=== PATIENT | female | born 1985 | race Caucasian/White ===

== ENCOUNTER 2020-05-30 12:49 | Emergency (ER) | payer MEDICAID, OTHER ==
[2020-05-30] MEDS ORDERED: Lidocaine 1% 30 ML SDV INJECT ONE (13:05)
--- NOTE | 2020-05-30 13:49 | EDM.PDOC ---
ED HPI GENERAL MEDICAL PROBLEM - General Chief Complaint: Laceration Time Seen by Provider: 05/30/20 13:01 Source of Information: Reports: Patient History Limitations: Reports: No Limitations - History of Present Illness INITIAL COMMENTS - FREE TEXT/NARRATIVE: Pt. presents to ER with complaints of laceration/skin tear to R anteriolateral wrist. Tetanus is up to date. Denies any injury elsewhere. No numbness/tingling distal to the area of injury. She reports that the area of the skin avulsion is extremely tender and sensitive to palpation/bandaging. Pt. states that she has no history of allergy to lidocaine or other local anesthetics. Onset: Today Onset Date: 05/30/20 Location: Reports: Upper Extremity, Right Quality: Reports: Burning, Sharp, Throbbing Improves with: Reports: Rest Worsens with: Reports: Movement Right Hand Pain Score (Numeric/FACES): 4 - Related Data Allergies Allergy/AdvReac Type Severity Reaction Status Date / Time aspirin Allergy Pain Verified 05/30/20 12:59 codeine Allergy Vomiting Verified 05/30/20 12:59 latex Allergy Rash Verified 05/30/20 12:59 nickel Allergy Rash Verified 05/30/20 12:59 Home Meds: Home Meds Calcium Carbonate [Calcium] 500 mg PO DAILY 05/30/20 [History] Cyanocobalamin (Vitamin B-12) [Vitamin B-12] 1,000 mcg PO DAILY 05/30/20 [History] medroxyPROGESTERone [Depo-Provera Contraceptive] 150 mg IM Q30D 05/30/20 [History] Past Medical History - Past Health History Medical/Surgical History: Denies Medical/Surgical History - Infectious Disease History Infectious Disease History: Reports: None Social & Family History - Tobacco Use Tobacco Use Status *Q: Never Tobacco User ED ROS GENERAL - Review of Systems Review Of Systems: Comprehensive ROS is negative, except as noted in HPI. ED EXAM, SKIN/RASH Exam: See Below Exam Limited By: No Limitations General Appearance: Alert, WD/WN, Mild Distress Extremities: Other (approx. 4.5 cm irregularly shaped laceration/skin tear noted to anteriolateral R wrist over area of ulnar styloid. There is an area of partial avulsion of the skin at the distal end of the laceration, but it is pink and appears to be vital and actively bleeding. No retained material noted.) ED SKIN PROCEDURES - Laceration/Wound Repair Right Anterior Lateral Wrist Appearance: Subcutaneous, Irregular, Mildly Contaminated Distal NVT: Neuro & Vascular Intact, No Tendon Injury Anesthetic Type: Local Local Anesthesia - Lidocaine (Xylocaine): 1% Plain Local Anesthetic Volume: Other (9) Skin Prep: Chlorhexidine (Hibiciens), Saline Saline Irrigation (cc's): 1,000 Exploration/Debridement/Repair: Wound Explored, Explored to Base, No Foreign Material Found, Wound Margins Revised, Multiple Flaps Aligned Closed with: Sutures Lac/Wound length In cm: 4.5 Suture Size: 4-0 # of Sutures: 6 Suture Type: Nylon Progress/Comments: Laceration was closed with 6 sutures. The skin edge at the very distal end of the laceration was cautiously excised, but a majority of this partially avulsed area was able to be sutures in place with opposing suture tension. Course - Vital Signs Last Recorded V/S: Last Vital Signs Temp 36.6 C 05/30/20 13:01 Pulse 84 05/30/20 13:01 Resp 16 05/30/20 13:01 BP 112/74 05/30/20 13:01 Pulse Ox 98 05/30/20 13:01 - Orders/Labs/Meds Meds: Medications Discontinued Medications Generic Name Dose Route Start Last Admin Trade Name Don PRN Reason Stop Dose Admin Lidocaine HCl 30 ml 05/30/20 13:05 05/30/20 13:13 Lidocaine 1% 30 Ml Sdv INJECT 05/30/20 13:06 30 ml ONETIME ONE Administration Departure - Departure Time of Disposition: 13:40 Disposition: Home, Self-Care 01 Clinical Impression: Laceration, Skin tear - Discharge Information Instructions: Laceration Care, Adult Referrals: PCP,None [Primary Care Provider] - Forms: ED Department Discharge Additional Instructions: Keep dry for 48 hours. Keep dressing on until Monday after work. After that, keep open to air as much as possible. Cover it if you anticipate it getting dirty, before going to sleep, etc. Otherwise, keep open to air as much as possible to promote healing. Return if there is any redness, swelling, or discharge from the laceration. Sutures can be removed at the clinic of your choice in 12 days (06/11/2020) Call if you have any questions. Sepsis Event Note (ED) - Evaluation Sepsis Screening Result: No Definite Risk - Focused Exam Vital Signs: Vital Signs Temp Pulse Resp BP Pulse Ox 05/30/20 13:01 36.6 C 84 16 112/74 98 - Problem List Review Problem List Initiated/Reviewed/Updated: Yes - Assessment/Plan Plan: Keep dry for 48 hours. Keep dressing on until Monday after work. After that, keep open to air as much as possible. Cover it if you anticipate it getting dirty, before going to sleep, etc. Otherwise, keep open to air as much as possible to promote healing. Return if there is any redness, swelling, or discharge from the laceration. Sutures can be removed at the clinic of your choice in 12 days (06/11/2020) Call if you have any questions.
== END 2020-05-30 14:00 | disposition home or self-care (01) ==
LOC: VM.ED 12:49
DX: S61.511A Laceration without foreign body of right wrist, initial encounter (principal); Z88.6 Allergy status to analgesic agent; Z88.5 Allergy status to narcotic agent; Z91.040 Latex allergy status; Z91.048 Other nonmedicinal substance allergy status; W25.XXXA Contact with sharp glass, initial encounter
CPT/HCPCS: 12002; 99282-25; 99283